=== PATIENT | male | born 1935 | race African-American/Black ===

== ENCOUNTER 2017-10-17 05:03 | Inpatient (IN) | payer OTHER ==
[~2017-10-17] VITALS: Ht 177.8 cm; Wt 83.1 kg
[~2017-10-17 05:03] MED LIST: ALEN70TA55 PO; ASPI-231 PO; ATEN-60 PO; DONE10TA40 PO; FAMO-12 PO; INSUINJ2 SC; ISOS5TAB PO; LISI10TA6 PO; MULT-228 PO; SIMV10TA84 PO
[2017-10-17] MEDS ORDERED: ASPirin 81 mg TAB PO ONE (06:15)
[2017-10-17 06:20] LABS: INR 1.01 (0.9-1.15); Partial Thromboplastin Time 20.2 sec (22.64-33.71)
[2017-10-17 06:24] LABS: Basophils # (auto) 0 uL; Basophils % (auto) 0.2 % (0.0-2.0); Eosinophils # (auto) 0 uL; Eosinophils % (auto) 0.2 % (0.0-7.0); Hematocrit 46.7 % (41.0-53.0); Hemoglobin 15.1 g/dL (13.5-17.5); Lymphocytes # (auto) 0.3 uL; Mean Corpuscular Hemoglobin 27.9 pg (28.0-32.0); Mean Corpuscular Hgb Conc. 32.4 g/dL (32.0-36.0); Mean Corpuscular Volume 86.1 fL (80.0-100.0); Monocytes # (auto) 0.5 uL; Monocytes % (auto) 4.2 % (0.0-12.0); Neutrophils # (auto) 10.5 uL; Neutrophils % (auto) 92.4 % (37.0-80.0); Platelet Count (auto) 188 10^3/uL (140-450); Red Blood Cells 5.42 10^6/uL (4.5-5.90); Red Cell Distribution Width 14.4 % (11.8-14.3); White Blood Cell 11.3 10^3/uL (4.4-10.8)
[2017-10-17 06:27] LABS: Calcium 9.8 mg/dL (8.5-10.1); Potassium 4.5 mmol/L (3.5-5.1)
[2017-10-17 06:30] LABS: Albumin 3.6 g/dL (3.4-5.0); BUN/Creatinine Ratio 16.8
[2017-10-17] MEDS ORDERED: ANGIOMAX 250 MG VIAL IV ONE (06:37)
[2017-10-17] MEDS ORDERED: MIDAZOLAM HCL 1MG/1ML-2 ML VIAL ONE (06:37)
[2017-10-17] MEDS ORDERED: fentaNYL CITRATE 100 MCG/2 ML VL ONE (06:37)
[2017-10-17] MEDS ORDERED: EPTIFIBATIDE INJ (2MG/ML) 10ML VIAL IV ONE (06:38)
[2017-10-17] MEDS ORDERED: IOHEXOL 350 MG/ML 100ML IJ ONE (06:41)
[2017-10-17] MEDS ORDERED: LIDOCAINE 2%HCL (LOCAL ANESTH.) INJ 20ML MDV ONE (06:41)
[2017-10-17 06:45] LABS: Bilirubin, Total 1.1 mg/dL (0.2-1.0); Total Protein 7.3 g/dL (6.4-8.2)
[2017-10-17] MEDS ORDERED: IODIXANOL 320MG/ML 100ML BTL IV ONE (07:30)
[2017-10-17] MEDS ORDERED: SODIUM CHLORIDE 0.9% 1,000 ML IV SCH ×2 (08:34→17:45)
[2017-10-17] MEDS ORDERED: DEXTROSE (50%) 50ML SYRG IV PRN (08:45)
[2017-10-17] MEDS ORDERED: LORazepam 0.5 MG TAB PO PRN (08:45)
[2017-10-17] MEDS ORDERED: HYDROcodone-ACET 5/325MG TAB PO PRN (08:45)
[2017-10-17] MEDS ORDERED: MORPHINE SULF INJ 2 MG/ML SYRINGE 1ML IV PRN (08:45)
[2017-10-17] MEDS ORDERED: NITROGLYCERIN 0.4 MG SL TAB SL PRN (08:45)
[2017-10-17] MEDS ORDERED: LISI10TA6 PO (08:56)
[2017-10-17] MEDS ORDERED: PATIENTS OWN MEDICATION (Alendronate Sodium 1 TAB) PO SCH (09:00)
[2017-10-17] MEDS ORDERED: amLODIPine BESYLATE 5 MG TAB PO ONE (09:00)
[2017-10-17] MEDS ORDERED: MORPHINE SULFATE 4 MG/ML SYR/VIAL IV PRN (09:00)
[2017-10-17] MEDS: amLODIPine BESYLATE 5 MG TAB PO SCH (09:54)
[2017-10-17] MEDS: MULTIPLE VITAMIN TAB PO SCH (09:54)
[2017-10-17] MEDS: FAMOTIDINE 20 MG TAB PO SCH ×2 (09:54→21:47)
[2017-10-17] MEDS: ISOSORBIDE MONONITRATE 60 MG TAB PO SCH (09:54)
[2017-10-17] MEDS ORDERED: PATIENTS OWN MEDICATION (Simvastatin 10 MG) PO SCH (10:00)
[2017-10-17] MEDS ORDERED: LISINOPRIL 10 MG TAB PO SCH (10:00)
[2017-10-17] MEDS ORDERED: PATIENTS OWN MEDICATION (Donepezil Hydrochloride (Donepezil Hcl) 10 MG) PO SCH (10:00)
[2017-10-17] MEDS: ACCU-CHEK COMFORT CURVE STRIP VI SCH ×3 (11:23→21:48)
[2017-10-17] MEDS: InsuLIN REG 1unit/0.01ml Soln (100units/ml) SC SCH ×3 (11:30→21:54)
[2017-10-17 15:00] VITALS: BP 106/45
[2017-10-17] MEDS ORDERED: CALC600T57 PO (16:26)
[2017-10-17] MEDS ORDERED: CYAN1TAB14 PO (16:26)
[2017-10-17 17:19] VITALS: BP 122/46
[2017-10-17] MEDS ORDERED: cefTRIAXone 1GM/10ml IVPUSH 10 ML IV ONE (17:45)
[2017-10-17] MEDS: TAMSULOSIN HYDROCHLORIDE 0.4 MG CAP PO SCH (18:18)
[2017-10-17 20:00] VITALS: BP 122/32
[2017-10-17] MEDS: PRAVASTATIN SODIUM 20 MG TAB PO SCH (21:47)
[2017-10-17] MEDS: DONEPEZIL HYDROCHLORIDE 5 MG TAB PO SCH (21:47)
[2017-10-17 22:00] VITALS: BP 122/32
[2017-10-18] VITALS (7 sets, daily range): BP systolic 81–135; BP diastolic 41–71
[2017-10-18 03:31] LABS: Urine Bacteria MANY /hpf (None Seen); Urine Blood 2+ /uL (Negative); Urine Mucus FEW (None Seen); Urine Specific Gravity 1.044 (1.001-1.035); Urine WBC 161 /hpf (0 - 3)
[2017-10-18 06:01] LABS: Basophils # (auto) 0 uL; Basophils % (auto) 0.2 % (0.0-2.0); Eosinophils # (auto) 0 uL; Eosinophils % (auto) 0.1 % (0.0-7.0); Hematocrit 38.4 % (41.0-53.0); Hemoglobin 12.6 g/dL (13.5-17.5); Lymphocytes # (auto) 0.8 uL; Lymphocytes % (auto) 8.2 % (10.0-50.0); Mean Corpuscular Hemoglobin 28.1 pg (28.0-32.0); Mean Corpuscular Hgb Conc. 32.9 g/dL (32.0-36.0); Mean Corpuscular Volume 85.4 fL (80.0-100.0); Monocytes # (auto) 0.8 uL; Monocytes % (auto) 8.9 % (0.0-12.0); Neutrophils # (auto) 7.7 uL; Neutrophils % (auto) 82.6 % (37.0-80.0); Platelet Count (auto) 166 10^3/uL (140-450); Red Blood Cells 4.49 10^6/uL (4.5-5.90); Red Cell Distribution Width 14.4 % (11.8-14.3); White Blood Cell 9.3 10^3/uL (4.4-10.8)
[2017-10-18] MEDS: ACCU-CHEK COMFORT CURVE STRIP VI SCH ×4 (06:21→22:14)
[2017-10-18] MEDS: InsuLIN REG 1unit/0.01ml Soln (100units/ml) SC SCH ×4 (06:24→22:18)
[2017-10-18 06:26] LABS: BUN/Creatinine Ratio 20.9; Calcium 8.5 mg/dL (8.5-10.1); Potassium 4.5 mmol/L (3.5-5.1)
[2017-10-18] MEDS ORDERED: cefTRIAXone 1GM/10ml IVPUSH 10 ML IV SCH (09:00)
[2017-10-18] MEDS ORDERED: LISINOPRIL 10 MG TAB PO SCH ×2 (10:00)
[2017-10-18] MEDS: ASPirin-EC 81 mg tab PO SCH (10:35)
[2017-10-18] MEDS: ISOSORBIDE MONONITRATE 60 MG TAB PO SCH (10:36)
[2017-10-18] MEDS: MULTIPLE VITAMIN TAB PO SCH (10:36)
[2017-10-18] MEDS: FAMOTIDINE 20 MG TAB PO SCH ×2 (10:36→22:14)
[2017-10-18] MEDS: amLODIPine BESYLATE 5 MG TAB PO SCH (10:37)
[2017-10-18] MEDS ORDERED: LACTULOSE 20Gm/30ML SOLN PO PRN (17:45)
[2017-10-18] MEDS: SODIUM CHLORIDE 0.9% 1,000 ML IV SCH (18:33)
[2017-10-18] MEDS: TAMSULOSIN HYDROCHLORIDE 0.4 MG CAP PO SCH (18:33)
[2017-10-18] MEDS: ACETAMINOPHEN 500 MG TAB PO PRN (18:34)
[2017-10-18] MEDS: DONEPEZIL HYDROCHLORIDE 5 MG TAB PO SCH (22:13)
[2017-10-18] MEDS: PRAVASTATIN SODIUM 20 MG TAB PO SCH (22:14)
[2017-10-19 05:00] VITALS: BP 134/52
[2017-10-19 05:59] LABS: Basophils # (auto) 0 uL; Basophils % (auto) 0.1 % (0.0-2.0); Eosinophils # (auto) 0.1 uL; Eosinophils % (auto) 0.8 % (0.0-7.0); Hematocrit 37.6 % (41.0-53.0); Hemoglobin 12.3 g/dL (13.5-17.5); Lymphocytes # (auto) 1.2 uL; Lymphocytes % (auto) 10.8 % (10.0-50.0); Mean Corpuscular Hgb Conc. 32.6 g/dL (32.0-36.0); Mean Corpuscular Volume 85.9 fL (80.0-100.0); Monocytes # (auto) 1.3 uL; Monocytes % (auto) 11.7 % (0.0-12.0); Neutrophils # (auto) 8.4 uL; Neutrophils % (auto) 76.6 % (37.0-80.0); Nucleated Red Blood Cells % 0.1 %; Platelet Count (auto) 149 10^3/uL (140-450); Red Blood Cells 4.38 10^6/uL (4.5-5.90); Red Cell Distribution Width 14.1 % (11.8-14.3)
[2017-10-19] MEDS ORDERED: ALENDRONATE SODIUM 10 MG TAB PO SCH (06:00)
[2017-10-19] MEDS: ACCU-CHEK COMFORT CURVE STRIP VI SCH ×4 (06:17→22:44)
[2017-10-19 06:19] LABS: Albumin 2.9 g/dL (3.4-5.0); BUN/Creatinine Ratio 26.9; Bilirubin, Total 0.7 mg/dL (0.2-1.0); Magnesium 2.6 mg/dL (1.6-2.6); Phosphorus 1.6 mg/dL (2.5-4.90); Total Protein 6.2 g/dL (6.4-8.2)
[2017-10-19] MEDS: InsuLIN REG 1unit/0.01ml Soln (100units/ml) SC SCH ×4 (06:27→23:09)
[2017-10-19 08:12] VITALS: BP 124/56
[2017-10-19] MEDS: cefTRIAXone 1GM/10ml IVPUSH 10 ML IV SCH (09:40)
[2017-10-19] MEDS: SODIUM CHLORIDE 0.9% 1,000 ML IV SCH (10:45)
[2017-10-19] MEDS: ASPirin-EC 81 mg tab PO SCH (11:13)
[2017-10-19] MEDS: ISOSORBIDE MONONITRATE 60 MG TAB PO SCH (11:14)
[2017-10-19] MEDS: MULTIPLE VITAMIN TAB PO SCH (11:14)
[2017-10-19] MEDS: FAMOTIDINE 20 MG TAB PO SCH ×2 (11:15→22:44)
[2017-10-19] MEDS: amLODIPine BESYLATE 5 MG TAB PO SCH (11:15)
[2017-10-19] MEDS ORDERED: NEUTRA-PHOS TABLET PO ONE (11:30)
[2017-10-19] MEDS: ACETAMINOPHEN 500 MG TAB PO PRN (12:21)
[2017-10-19 13:07] VITALS: BP 141/58
[2017-10-19 15:26] LABS: Urine Bacteria NONE SEEN /hpf (None Seen); Urine Blood 1+ /uL (Negative); Urine WBC 14 /hpf (0 - 3)
[2017-10-19 17:00] VITALS: BP 126/52
[2017-10-19] MEDS: TAMSULOSIN HYDROCHLORIDE 0.4 MG CAP PO SCH (18:05)
[2017-10-19 22:00] VITALS: BP 137/54
[2017-10-19] MEDS: DONEPEZIL HYDROCHLORIDE 5 MG TAB PO SCH (22:43)
[2017-10-19] MEDS: PRAVASTATIN SODIUM 20 MG TAB PO SCH (22:44)
[2017-10-20] MEDS: SODIUM CHLORIDE 0.9% 1,000 ML IV SCH (03:28)
[2017-10-20 05:00] VITALS: BP 134/65
[2017-10-20 06:04] LABS: Basophils # (auto) 0 uL; Basophils % (auto) 0.2 % (0.0-2.0); Eosinophils # (auto) 0.2 uL; Eosinophils % (auto) 2.4 % (0.0-7.0); Hematocrit 35.7 % (41.0-53.0); Hemoglobin 11.7 g/dL (13.5-17.5); Lymphocytes # (auto) 1.4 uL; Lymphocytes % (auto) 19.5 % (10.0-50.0); Mean Corpuscular Hemoglobin 28.1 pg (28.0-32.0); Mean Corpuscular Hgb Conc. 32.8 g/dL (32.0-36.0); Mean Corpuscular Volume 85.5 fL (80.0-100.0); Monocytes # (auto) 0.8 uL; Monocytes % (auto) 11.4 % (0.0-12.0); Neutrophils # (auto) 4.8 uL; Neutrophils % (auto) 66.5 % (37.0-80.0); Nucleated Red Blood Cells % 0.1 %; Platelet Count (auto) 150 10^3/uL (140-450); Red Blood Cells 4.18 10^6/uL (4.5-5.90); White Blood Cell 7.3 10^3/uL (4.4-10.8)
[2017-10-20] MEDS: ACCU-CHEK COMFORT CURVE STRIP VI SCH ×4 (06:25→22:09)
[2017-10-20] MEDS: InsuLIN REG 1unit/0.01ml Soln (100units/ml) SC SCH ×4 (06:26→22:29)
[2017-10-20 06:33] LABS: Albumin 2.5 g/dL (3.4-5.0); BUN/Creatinine Ratio 25.7; Bilirubin, Total 0.4 mg/dL (0.2-1.0); Calcium 7.6 mg/dL (8.5-10.1); Magnesium 2.7 mg/dL (1.6-2.6); Phosphorus 1.7 mg/dL (2.5-4.90); Potassium 3.8 mmol/L (3.5-5.1); Total Protein 5.6 g/dL (6.4-8.2)
[2017-10-20 07:50] VITALS: BP 140/49
[2017-10-20] MEDS: cefTRIAXone 1GM/10ml IVPUSH 10 ML IV SCH (09:00)
[2017-10-20] MEDS: FAMOTIDINE 20 MG TAB PO SCH ×2 (09:00→22:08)
[2017-10-20] MEDS: MULTIPLE VITAMIN TAB PO SCH (09:00)
[2017-10-20] MEDS: amLODIPine BESYLATE 5 MG TAB PO SCH (09:01)
[2017-10-20] MEDS: ASPirin-EC 81 mg tab PO SCH (09:01)
[2017-10-20] MEDS: ISOSORBIDE MONONITRATE 60 MG TAB PO SCH (09:01)
[2017-10-20 11:49] VITALS: BP 137/49
[2017-10-20] MEDS ORDERED: LISINOPRIL 5 MG TAB PO ONE (12:15)
[2017-10-20] MEDS ORDERED: ERTAPENEM SOD INJ 1 GM in SODIUM CHL 0.9% 100 ML IV ONE (12:30)
[2017-10-20] MEDS ORDERED: ERTAPENEM SOD 1 GM INJ VIAL IM SCH (13:00)
[2017-10-20 16:54] VITALS: BP 148/47
[2017-10-20] MEDS: TAMSULOSIN HYDROCHLORIDE 0.4 MG CAP PO SCH (17:42)
[2017-10-20 20:19] VITALS: BP 146/60
[2017-10-20] MEDS: DONEPEZIL HYDROCHLORIDE 5 MG TAB PO SCH (22:08)
[2017-10-20] MEDS: PRAVASTATIN SODIUM 20 MG TAB PO SCH (22:09)
[2017-10-21] MEDS ORDERED: LISINOPRIL 5 MG TAB PO SCH (10:00)
[2017-10-21] MEDS ORDERED: ERTAPENEM SOD INJ 1 GM in SODIUM CHL 0.9% 100 ML IV SCH (10:00)
== END 2017-10-20 22:30 | disposition short-term general hospital (02) | DRG 853 ==
LOC: ER 05:03 → EDBD 05:03 → TELE-EAST 05:04
PROVIDERS: ADMIT Internal Medicine Cardiovascular Disease; ATTEND Internal Medicine Cardiovascular Disease
PROC: 4A023N7 Measurement of Cardiac Sampling and Pressure, Left Heart, Percutaneous Approach (ICD-10-PCS; principal; 2017-10-17)
PROC: 02703ZZ Dilation of Coronary Artery, One Artery, Percutaneous Approach (ICD-10-PCS; 2017-10-17)
PROC: B2111ZZ Fluoroscopy of Multiple Coronary Arteries using Low Osmolar Contrast (ICD-10-PCS; 2017-10-17)
PROC: B2121ZZ Fluoroscopy of Single Coronary Artery Bypass Graft using Low Osmolar Contrast (ICD-10-PCS; 2017-10-17)
PROC: B2181ZZ Fluoroscopy of Left Internal Mammary Bypass Graft using Low Osmolar Contrast (ICD-10-PCS; 2017-10-17)
DX: A41.9 Sepsis, unspecified organism (principal); G93.40 Encephalopathy, unspecified; N17.0 Acute kidney failure with tubular necrosis; I63.532 Cerebral infarction due to unspecified occlusion or stenosis of left posterior cerebral artery; I21.19 ST elevation (STEMI) myocardial infarction involving other coronary artery of inferior wall; E44.0 Moderate protein-calorie malnutrition; D68.59 Other primary thrombophilia; E11.22 Type 2 diabetes mellitus with diabetic chronic kidney disease; N18.3 Chronic kidney disease, stage 3 (moderate); R53.2 Functional quadriplegia; I13.0 Hypertensive heart and chronic kidney disease with heart failure and stage 1 through stage 4 chronic kidney disease, or unspecified chronic kidney disease; N39.0 Urinary tract infection, site not specified; R47.01 Aphasia; T82.855A Stenosis of coronary artery stent, initial encounter; I69.351 Hemiplegia and hemiparesis following cerebral infarction affecting right dominant side; Z66 Do not resuscitate; I44.1 Atrioventricular block, second degree; Y83.8 Other surgical procedures as the cause of abnormal reaction of the patient, or of later complication, without mention of misadventure at the time of the procedure; I45.10 Unspecified right bundle-branch block; I50.9 Heart failure, unspecified; I25.10 Atherosclerotic heart disease of native coronary artery without angina pectoris; F03.90 Unspecified dementia, unspecified severity, without behavioral disturbance, psychotic disturbance, mood disturbance, and anxiety; E78.5 Hyperlipidemia, unspecified; Z82.49 Family history of ischemic heart disease and other diseases of the circulatory system; Z83.3 Family history of diabetes mellitus; I25.2 Old myocardial infarction; Z74.01 Bed confinement status; Z95.1 Presence of aortocoronary bypass graft; Z98.49 Cataract extraction status, unspecified eye; Z79.899 Other long term (current) drug therapy; Z79.82 Long term (current) use of aspirin; Z79.4 Long term (current) use of insulin; Y92.89 Other specified places as the place of occurrence of the external cause; L89.91 Pressure ulcer of unspecified site, stage 1
CPT/HCPCS: 36415; 70450; 71010; 80048; 80053; 81001; 82150; 82962; 83036; 83690; 83735; 84100; 84484; 85025; 85610; 85730; 87040; 87081; 87086; 87088; 87186; 87493; 92920; 93005; 93306; 93459; 99152; J1335; J1815; J2250; Q9967

== ENCOUNTER 2018-06-22 08:57 | Emergency (ER) | payer OTHER ==
[~2018-06-22] VITALS: Ht 175.3 cm; Wt 77.1 kg
[~2018-06-22 08:57] MED LIST changes: +CALC600T57 PO; +CYAN1TAB14 PO
[2018-06-22 10:01] LABS: Basophils # (auto) 0 uL; Basophils % (auto) 0.2 % (0.0-2.0); Eosinophils # (auto) 0 uL; Hematocrit 45.5 % (41.0-53.0); Hemoglobin 14.6 g/dL (13.5-17.5); Lymphocytes % (auto) 7.9 % (10.0-50.0); Mean Corpuscular Hemoglobin 27.5 pg (28.0-32.0); Mean Corpuscular Hgb Conc. 32.1 g/dL (32.0-36.0); Mean Corpuscular Volume 85.8 fL (80.0-100.0); Monocytes # (auto) 0.7 uL; Monocytes % (auto) 5.8 % (0.0-12.0); Neutrophils # (auto) 10.8 uL; Neutrophils % (auto) 86.1 % (37.0-80.0); Platelet Count (auto) 185 10^3/uL (140-450); Red Blood Cells 5.31 10^6/uL (4.5-5.90); Red Cell Distribution Width 15.4 % (11.8-14.3); White Blood Cell 12.5 10^3/uL (4.4-10.8)
[2018-06-22 10:21] LABS: Alanine Aminotransferase 15 U/L (16-61); Albumin 2.9 g/dL (3.4-5.0); Amylase 40 U/L (25-115); Anion Gap 10 (5-15); Aspartate Aminotransferase 14 U/L (15-37); BUN/Creatinine Ratio 25.5; Blood Urea Nitrogen 39 mg/dL (7-18); Calcium 9.6 mg/dL (8.5-10.1); Carbon Dioxide 24 mmol/L (21-32); Chloride 112 mmol/L (98-107); GFR African American 56 mL/min; GFR Non-African American 46 mL/min; Glucose 120 mg/dL (74-106); Lipase 38 U/L (73-393); Magnesium 2.6 mg/dL (1.6-2.6); Potassium 4.4 mmol/L (3.5-5.1); Sodium 146 mmol/L (136-145)
[2018-06-22 10:24] LABS: Alkaline Phosphatase 52 U/L (45-117); Bilirubin, Total 1.7 mg/dL (0.2-1.0); Total Protein 6.8 g/dL (6.4-8.2)
[2018-06-22 10:25] LABS: INR 1.04 (0.9-1.15); Partial Thromboplastin Time 23.5 sec (23.78-33.04); Prothrombin Time 11.1 sec (9.27-12.13)
[2018-06-22 13:17] LABS: Urine Bacteria FEW /hpf (None Seen); Urine Blood Negative /uL (Negative); Urine Specific Gravity 1.016 (1.001-1.035); Urine WBC 13 /hpf (0 - 3); Urine WBC Clumps PRESENT /hpf (None Seen)
[2018-06-22 14:27] VITALS: BP 164/75
[2018-06-22] MEDS ORDERED: SODIUM CHLORIDE 0.9% 1,000 ML IV ONE (14:30)
== END 2018-06-22 14:44 | disposition short-term general hospital (02) ==
LOC: EDBD 08:57 → ER 08:57
DX: G93.41 Metabolic encephalopathy (principal); J18.9 Pneumonia, unspecified organism; R41.82 Altered mental status, unspecified; E11.9 Type 2 diabetes mellitus without complications; E78.5 Hyperlipidemia, unspecified; R11.2 Nausea with vomiting, unspecified; I10 Essential (primary) hypertension; I25.2 Old myocardial infarction; Z86.73 Personal history of transient ischemic attack (TIA), and cerebral infarction without residual deficits; Z95.1 Presence of aortocoronary bypass graft
CPT/HCPCS: 36415; 51702; 70450; 71045; 74176; 80053; 81001; 82150; 82962; 83690; 83735; 83880; 84484; 85025; 85610; 85730

== ENCOUNTER 2019-05-19 09:28 | Emergency (ER) | payer OTHER ==
[~2019-05-19] VITALS: Ht 182.9 cm; Wt 81.6 kg
[~2019-05-19 09:28] MED LIST changes: +ALEN1TAB32 PO; -ALEN70TA55 PO
[2019-05-19 10:07] LABS: Basophils # (auto) 0 uL; Basophils % (auto) 0.4 % (0.0-2.0); Eosinophils # (auto) 0 uL; Eosinophils % (auto) 0.1 % (0.0-7.0); Hematocrit 40.4 % (41.0-53.0); Hemoglobin 13.3 g/dL (13.5-17.5); Lymphocytes # (auto) 1.6 uL; Lymphocytes % (auto) 17.9 % (10.0-50.0); Mean Corpuscular Hemoglobin 28.3 pg (28.0-32.0); Mean Corpuscular Hgb Conc. 32.8 g/dL (32.0-36.0); Mean Corpuscular Volume 86.2 fL (80.0-100.0); Monocytes # (auto) 0.6 uL; Monocytes % (auto) 6.3 % (0.0-12.0); Neutrophils # (auto) 6.9 uL; Neutrophils % (auto) 75.3 % (37.0-80.0); Nucleated Red Blood Cells % 0.1 %; Platelet Count (auto) 159 10^3/uL (140-450); Red Blood Cells 4.69 10^6/uL (4.5-5.90); Red Cell Distribution Width 14.8 % (11.8-14.3); White Blood Cell 9.2 10^3/uL (4.4-10.8)
[2019-05-19 10:25] LABS: Alanine Aminotransferase 17 U/L (16-61); Anion Gap 8 (5-15); Aspartate Aminotransferase 12 U/L (15-37); BUN/Creatinine Ratio 26.5; Blood Urea Nitrogen 36 mg/dL (7-18); Calcium 9.2 mg/dL (8.5-10.1); Carbon Dioxide 22 mmol/L (21-32); Chloride 113 mmol/L (98-107); GFR African American 64 mL/min; GFR Non-African American 53 mL/min; Glucose 150 mg/dL (74-106); Potassium 4.5 mmol/L (3.5-5.1); Sodium 143 mmol/L (136-145)
[2019-05-19 10:30] LABS: Alkaline Phosphatase 63 U/L (45-117); Bilirubin, Total 0.9 mg/dL (0.2-1.0); Total Protein 6.6 g/dL (6.4-8.2)
[2019-05-19 13:02] LABS: Urine Bacteria FEW /hpf (None Seen); Urine Blood Negative /uL (Negative); Urine Specific Gravity 1.012 (1.001-1.035); Urine WBC 22 /hpf (0 - 3); Urine WBC Clumps PRESENT /hpf (None Seen)
[2019-05-19 13:36] VITALS: BP 137/44
== END 2019-05-19 14:09 | disposition home or self-care (01) ==
LOC: ER 09:28 → EDBD 09:28 → ER 14:09
DX: R53.1 Weakness (principal); R62.7 Adult failure to thrive; R00.1 Bradycardia, unspecified; I25.810 Atherosclerosis of coronary artery bypass graft(s) without angina pectoris; E11.9 Type 2 diabetes mellitus without complications; E78.5 Hyperlipidemia, unspecified; I10 Essential (primary) hypertension; I25.2 Old myocardial infarction; Z95.1 Presence of aortocoronary bypass graft; Z98.61 Coronary angioplasty status; Z79.82 Long term (current) use of aspirin; Z79.4 Long term (current) use of insulin; Z79.899 Other long term (current) drug therapy; Z86.73 Personal history of transient ischemic attack (TIA), and cerebral infarction without residual deficits; Z68.24 Body mass index [BMI] 24.0-24.9, adult
CPT/HCPCS: 36415; 71045; 80053; 81001; 83880; 84484; 85025; 93005